=== PATIENT | female | born 1970 | race Caucasian/White ===

== ENCOUNTER 2018-07-07 02:25 | Inpatient (IN) | payer OTHER ==
[2018-07-06 15:26] LABS: INR 0.99
[2018-07-07] VITALS (14 sets, daily range): BP systolic 87–151; BP diastolic 74–102
[~2018-07-07] VITALS: Ht 157.5 cm; Wt 90.7 kg
[~2018-07-07 02:25] MED LIST: CELE50CA2 PO; CLON-388 PO; DUL20 PO; ESOM40CA42 PO; FEXO-72 PO; LOSA25TA52 PO; MULT1CAP59 PO; SUMA50TA34 PO
[2018-07-07] MEDS ORDERED: LIDOCAINE/SOD BICARB 8.4% SYR ID ONE (07:45)
[2018-07-07] MEDS ORDERED: BACITRACIN 50000 UNIT/VIAL 100,000 UNIT in NS 0.9% 3000 ML IRRIGATION BAG 3,000 ML IR ONE (07:45)
[2018-07-07] MEDS ORDERED: ACETAMINOPHEN 500 MG TAB PO ONE (07:45)
[2018-07-07] MEDS ORDERED: CLINDAMYCIN 900 MG/D5W 50 ML 50 ML IVPB ONE (07:45)
[2018-07-07] MEDS ORDERED: MIDAZOLAM 2 MG/2 ML VIAL IVP PRN (07:45)
[2018-07-07] MEDS ORDERED: PREGABALIN 150 MG CAPSULE PO ONE (07:45)
[2018-07-07] MEDS ORDERED: TRANEXAMIC AC 1000 MG/10ML SDV 1,000 MG in DEXTROSE 5% 50 ML BAG 50 ML IV ONE (07:45)
[2018-07-07] MEDS ORDERED: cloNIDine EPIDUR INJ 100MCG/ML 40 MCG, ROPIVACAINE 0.5% 20 ML VIAL 25 ML, EPINEPHrine H... INJ ONE (07:45)
[2018-07-07] MEDS ORDERED: PROPOFOL EMUL(*) 10MG/ML 20 ML 20 ML ONE (09:56)
[2018-07-07] MEDS ORDERED: PHENYLEPHRINE/NS/PF 0.4MG/10ML ONE (09:56)
[2018-07-07] MEDS ORDERED: fentaNYL CITR 100 MCG/2 ML AMP ONE ×4 (09:56→15:55)
[2018-07-07] MEDS ORDERED: LIDOCAINE MPF 1% 5 ML VIAL ONE (09:56)
[2018-07-07] MEDS ORDERED: ONDANSETRON 4 MG/2 ML VIAL ONE (09:56)
[2018-07-07] MEDS ORDERED: KETAMINE HCL-NS 50 MG/5 ML SYR ONE (10:01)
[2018-07-07] MEDS: CELECOXIB 200 MG CAP PO ONE ×2 (10:24→10:25)
[2018-07-07] MEDS: NORMOSOL R SOLN(*) 1000 ML BAG 1,000 ML IV PRN ×2 (10:25→15:48)
[2018-07-07] MEDS ORDERED: ROPIVACAINE 0.2% 20 ML VIAL ONE (12:00)
[2018-07-07] MEDS ORDERED: GENTAMICIN 80 MG/2 ML VIAL ONE (12:01)
[2018-07-07] MEDS ORDERED: EPINEPHrine HCL 1 MG/ML AMP ONE (12:01)
[2018-07-07] MEDS ORDERED: MIDAZOLAM 2 MG/2 ML VIAL ONE (13:00)
[2018-07-07] MEDS ORDERED: HYDROmorphone HCL 2 MG/ML SDV ONE (14:02)
[2018-07-07] MEDS ORDERED: ROCURONIUM BROM 10 MG/ML 10 ML ONE (14:35)
--- NOTE | 2018-07-07 15:12 | RADIOLOGY IMAGING REPORT ---
FACILITY: [facility] - [place] PATIENT NAME: Lisa Haro : 1970 MR: [id number] V: [id number] EXAM DATE: ORDERING PHYSICIAN: NEFTALI MICHELLE TECHNOLOGIST: [place] [facility] [place] Patient: Lisa Haro : 1970 Visit/Account:[id number] Date of Sevice: 07/07/2018 Exam type: 2 views right hip in OR History: Right hip arthroplasty Comparison: 04/09/2018. Findings: 2 images of the right hip are provided and demonstrate a right hip arthroplasty without hardware comp lication. Surgical tubes overlie the pelvis and a needle hook overlies the left pelvis. IMPRESSION: 1. Postoperative changes are noted from right hip arthroplasty without hardware complication. Pleas e note a needle hook overlies the left pelvis presumably outside the patient. Please correlate cli nically. Report Dictated By: Davi Azevedo MD at 07/07/2018 3:04 PM Report E-Signed By: Davi Azevedo MD at 07/07/2018 3:07 PM ANGEN:KEVAN
[2018-07-07] MEDS ORDERED: SUGAMMADEX SOD 500 MG/5 ML SDV ONE (15:25)
[2018-07-07] MEDS ORDERED: BISACODYL 10 MG SUPP PR PRN (16:20)
[2018-07-07] MEDS ORDERED: FLUSH 10 ML SYR IVP PRN (16:20)
[2018-07-07] MEDS ORDERED: LR 1000 ML BAG 1000 ML IV PRN (16:20)
[2018-07-07] MEDS ORDERED: diphenhydrAMINE 25 MG CAP PO PRN (16:20)
[2018-07-07] MEDS ORDERED: diphenhydrAMINE 50 MG/ML VIAL IVP PRN (16:20)
[2018-07-07] MEDS ORDERED: ONDANSETRON 4 MG/2 ML VIAL IVP PRN (16:20)
[2018-07-07] MEDS ORDERED: PROMETHAZINE 25 MG/ML 1 ML AMP IVP PRN (16:20)
[2018-07-07] MEDS ORDERED: MAGNESIUM CITRATE 300 ML BTL PO PRN (16:20)
[2018-07-07] MEDS ORDERED: MAGNESIUM HYDROXIDE* 30ML UDCP PO PRN (16:20)
[2018-07-07] MEDS ORDERED: ZOLPIDEM TARTRATE 5 MG TAB PO PRN (16:20)
--- NOTE | 2018-07-07 16:43 | RADIOLOGY IMAGING REPORT ---
FACILITY: [facility] - [place] PATIENT NAME: Lisa Haro : 1970 MR: [id number] V: [id number] EXAM DATE: ORDERING PHYSICIAN: NEFTALI MICHELLE TECHNOLOGIST: Location: [facility] - [place] Patient: Lisa Haro : 1970 Visit/Account:[id number] Date of Sevice: 07/07/2018 Exam: PELVIS Indication: POST RIGHT TOTAL HIP ARTHROPLASTY, RAD Comparison: None available Findings: Limited view of the pelvis shows a two part right OBI. Components appear in good alignment . The pelvis is intact. IMPRESSION: 1. Unremarkable postoperative right OBI Report Dictated By: Bereket Thomas at 07/07/2018 4:37 PM Report E-Signed By: Bereket Thomas at 07/07/2018 4:38 PM WSN:[id number]
[2018-07-07] MEDS: HYDROmorphone HCL 2 MG/ML SDV IVP PRN (17:22)
[2018-07-07] MEDS ORDERED: CELE200C7 PO (17:42)
[2018-07-07] MEDS ORDERED: LOSA100T69 PO (17:42)
[2018-07-07] MEDS ORDERED: ESCI20TA8 PO (17:42)
[2018-07-07] MEDS ORDERED: clonazePAM 0.5 MG TAB PO PRN (18:55)
[2018-07-07] MEDS ORDERED: SUMAtriptan SUCC 25MG TAB PO PRN (18:55)
--- NOTE | 2018-07-07 19:04 | Hospitalist Progress Note ---
Subjective Progress Notes Subjective No cp/sob. EBL 200cc. 2000cc of crystalloid, dexamethasone and TXA given intra-op. Physical Exam Vital Signs Date Time Temp Pulse Resp B/P (MAP) Pulse Ox O2 Delivery O2 Flow Rate FiO2 07/07/18 18:30 95 150/101 (117) 96 Nasal Cannula 2.0 07/07/18 17:10 97.6 14 General Appearance: Alert, Awake, No Acute Distress Cardiovascular: Regular Rate and Rhythm Respiratory: Clear to Auscultation Extremities: No Edema Assessment and Plan Problems: (1) Status post hip replacement Status: Acute Assessment & Plan: No CV/pulmonary issues. No h/o DVT/PE. The patient will be on ASA 325mg a day for 30 days for blood clot prevention. (2) HTN (hypertension) Status: Chronic Assessment & Plan: Continue chronic Losartan with parameters. (3) GERD (gastroesophageal reflux disease) Status: Chronic Assessment & Plan: The patient chronically takes Nexium. Protonix will be used in the hospital. (4) Anxiety Status: Chronic Assessment & Plan: Continue chronic Lexapro and will use clonazepam prn. (5) History of migraine Status: Chronic Assessment & Plan: Continue Imitrex prn. Problem Qualifiers (1) Status post hip replacement: Laterality: right Qualified Codes: Z96.641 - Presence of right artificial hip joint KAYLEE FRANKLIN MD Jul 07, 2018 19:04
[2018-07-07] MEDS: CLINDAMYCIN 150 MG CAP PO SCH (19:36)
--- NOTE | 2018-07-07 19:48 | OPERATIVE REPORT 1 ---
EVENT DATE: July 07, 2018 SURGEON: Elton Barrientos MD ANESTHESIOLOGIST: Neri Salazar MD ANESTHESIA: General LMA anesthesia, also with a block. NETWORK SYSTEMS ANALYST: Juan Antonio Hardin PA-C PREOPERATIVE DIAGNOSIS Right hip osteoarthritis. POSTOPERATIVE DIAGNOSIS Right hip osteoarthritis. PROCEDURE PERFORMED Right total hip arthroplasty. FINDINGS The patient had a significant amount of arthritic changes associated with the hip. It was amenable for a total hip replacement. ESTIMATED BLOOD LOSS About 300 mL. DRAINS None. COMPLICATIONS None. TOURNIQUET TIME Not applicable. IMPLANTS USED Sky 52 mm trabecular metal cup with a neutral liner, a 9 standard stem, a 36, +3.5 ceramic head, a 6.5 x 35 mm bone screw into the cup, then two screw hole plugs, and one dome hole plug. SPECIMENS None. INDICATIONS AND HISTORY This patient is a 47-year-old female who presented to my clinic for evaluation of right hip pain and irritation associated with arthritic changes. She tried all conservative management including injections, therapy, and living with it, and unfortunately, it continued to give her significant pain associated with this, and so she wanted to go ahead with the total hip replacement today, 07/07/18. We went over the risks and benefits associated with this, and the risks and benefits were discussed with her. She also understood that she is very young to have a total hip replacement, and this will likely mean she will need a revision or two before the end of her lifetime. She understood that with each revision comes more complications and problems associated with it, but she wanted to go ahead with that today. We went over the risks and benefits, and informed consent was obtained at the last clinic visit. DESCRIPTION OF PROCEDURE As the patient was brought into the operating room, and she and the procedure were both verified. She was placed supine on the operating table and given a block by Anesthesia, and then she was induced and intubated by Anesthesia. She was turned into the lateral decubitus position with the right hip towards the ceiling. The right hip was then prepped and draped in the usual fashion. A timeout was observed verifying the correct patient and procedure. The standard incision was made over the posterolateral aspect of the hip and was taken through the skin and subcutaneous tissue until I got down to the IT band and to the gluteal musculature. Once I was able to get to this area, I then made an incision through this area in order to get to the back of the greater trochanter in this area. Once I was able to do this, I was able to identify the piriformis and able to cut this and tag this for later repair. I was able to go through the rest of the short external rotators and cauterize all bleeders through this area. Once I had good exposure of this, I was then able to visualize the capsule. I made a T-shape incision within the capsule trying to keep an eye in order to make it amenable for further repair. I then dislocated the hip without any major difficulty, cleaned off the neck, and then cut the head in the standard fashion in accordance with the Sky system. I then was able to gain access to the acetabulum where we put a retractor superiorly, anteriorly, and inferiorly. I was able to then tag the capsule for later repair. This was then followed by irrigation with copious amounts of saline and then cleaning out the undersurface of the acetabulum. I then removed the labrum with sharp dissection and then commenced reaming. Once I commenced reaming, I started with a 41 mm reamer and reamed all the way up to a 51 mm reamer. It did make the posterior wall just a touch thin, but she did not have much of a posterior wall and also had a retroverted acetabulum, and so therefore, we put the cup in with a little bit more of an anteversion to try to prevent her dislocation given her body habitus and her hip replacement early in life. We then irrigated with copious amounts of saline. I put in a 52 cup without any major difficulty. I had good fixation associated with it. I put a screw in just in case since we had changed the version of our cup just slightly, and so therefore, we then were able to put in the liner without any difficulty after putting one screw, which is a 6.5 x 35 mm screw, a dome hole plug, and two screw hole plugs in the area. This then secured fixation of the cup. I then turned attention back to the femur where I was able to put it in a flexed and internally rotated position. I then able to get at the femur and then use a box cutting osteotome, followed by lateralizing reamer and a canal finder, and then commenced broaching up from a [address] up to a 9 mm broach. The 9 mm fit in well, and we calcar reamed this down just a little bit. The standard head felt to be a little bit loose when we reduced it into the socket, and so therefore, I put in a +3.5, and this felt a lot better and had a little bit more stability associated with it. We then took an intraoperative x-ray, verified that we were just a little bit long on that side, maybe a millimeter or two, and so therefore, we then removed all instrumentation. I took the 9 broach and put it in just about another millimeter or two further and then put the final stem in to that level in order to even out the leg lengths. We then put in a +3.5 ceramic head which was a 36, +3.5 ceramic head, and relocated it. It had good length associated with it and good stability, and so therefore, these were the final components chosen. We then irrigated with copious amounts of saline again, closed the capsule using a heavy Ethibond stitch, put the piriformis back through drill holes in the posterior aspect of the femur, and then closed the IT band and the gluteal musculature with a #2 Stratafix suture. This was then followed by irrigation again with copious amounts of saline using the pulsatile lavage with Bacitracin- soaked irrigation. We then closed the deep fat layer with a 2-0 Vicryl in a running stitch, then closed the subcutaneous skin with a 2-0 Stratafix, and then followed by a 4-0 Monocryl in a running subcuticular stitch. We did add the pain cocktail throughout the case, and then we dressed with Steri-Strips, gauze 4 x 4's, and a soft dressing. The patient was then awakened, extubated, and transferred to PACU in stable condition where she will be admitted overnight. MANOHAR
[2018-07-07] MEDS: ASPIRIN 325 MG TAB PO SCH (21:16)
[2018-07-08] VITALS (8 sets, daily range): BP systolic 88–122; BP diastolic 68–84; Ht 157.5 cm; Wt 90.7 kg
[2018-07-08] MEDS: CLINDAMYCIN 150 MG CAP PO SCH ×2 (01:38→07:32)
[2018-07-08] MEDS ORDERED: LOSARTAN POTASSIUM 50 MG TAB PO SCH (09:00)
--- NOTE | 2018-07-08 09:20 | Hospitalist Progress Note ---
Subjective Progress Notes Subjective She has no complaints this morning. She had no acute events overnight. Patient Complains of: Cardiovascular: No: Chest Pain Respiratory: No: Shortness of Breath Physical Exam Vital Signs Date Time Temp Pulse Resp B/P (MAP) Pulse Ox O2 Delivery O2 Flow Rate FiO2 07/08/18 07:33 97.9 76 18 110/76 (87) 95 Nasal Cannula 1.0 Intake and Output 07/08/18 07:00 Intake Total 2150 ml Balance 2150 ml Intake IV Total 2150 ml # Voids 1 General Appearance: Alert, Awake, No Acute Distress, Afebrile Neuro: No Gross deficits Cardiovascular: Regular Rate and Rhythm Respiratory: No Respiratory Distress, Clear to Auscultation GI: Soft and Non-Tender Psych: Alert & Oriented X3, Appropriate Mood & Affect Result Diagram: 07/08/18 0547 Assessment and Plan Problems: (1) Status post hip replacement Status: Acute Assessment & Plan: No CV/pulmonary issues. No h/o DVT/PE. The patient will be on ASA 325mg a day for 30 days for blood clot prevention. (2) HTN (hypertension) Status: Chronic Assessment & Plan: Continue chronic Losartan with parameters. (3) GERD (gastroesophageal reflux disease) Status: Chronic Assessment & Plan: The patient chronically takes Nexium. Protonix will be used in the hospital. (4) Anxiety Status: Chronic Assessment & Plan: Continue chronic Lexapro and will use clonazepam prn. (5) History of migraine Status: Chronic Assessment & Plan: Continue Imitrex prn. Exam Sepsis Risk: No Definite Risk Problem Qualifiers (1) Status post hip replacement: Laterality: right Qualified Codes: Z96.641 - Presence of right artificial hip joint HIRAM BERNARD [facility] Jul 08, 2018 09:20
[2018-07-08] MEDS: PANTOPRAZOLE SOD 40 MG TABEC PO SCH (09:31)
[2018-07-08] MEDS: ESCITALOPRAM OXALATE 10 MG TAB PO SCH (09:31)
[2018-07-08] MEDS: HYDROmorphone HCL 2 MG/ML SDV IVP PRN ×2 (16:02→21:23)
[2018-07-08] MEDS: ASPIRIN 325 MG TAB PO SCH (21:23)
[2018-07-09 03:34] VITALS: BP 120/84
[2018-07-09] MEDS: HYDROmorphone HCL 2 MG/ML SDV IVP PRN (05:46)
[2018-07-09] MEDS ORDERED: PER PO (07:17)
[2018-07-09 08:01] VITALS: BP 118/80
[2018-07-09] MEDS: ESCITALOPRAM OXALATE 10 MG TAB PO SCH (08:05)
[2018-07-09] MEDS: PANTOPRAZOLE SOD 40 MG TABEC PO SCH (08:05)
[2018-07-09] MEDS ORDERED: ASPI-757 PO (09:06)
--- NOTE | 2018-07-09 09:55 | Hospitalist Progress Note ---
Subjective Progress Notes Subjective She has no complaints this morning. She had no acute events overnight. Patient Complains of: Cardiovascular: No: Chest Pain Respiratory: No: Shortness of Breath Physical Exam Vital Signs Date Time Temp Pulse Resp B/P (MAP) Pulse Ox O2 Delivery O2 Flow Rate FiO2 07/09/18 08:50 93 Room Air 07/09/18 08:01 98.6 83 16 118/80 (93) 07/08/18 07:40 1.0 Intake and Output 07/09/18 07:00 Intake Total 600 ml Balance 600 ml Intake Oral 600 ml # Voids 3 General Appearance: Alert, Awake, No Acute Distress, Afebrile Neuro: No Gross deficits Cardiovascular: Regular Rate and Rhythm Respiratory: No Respiratory Distress, Clear to Auscultation GI: Soft and Non-Tender Psych: Alert & Oriented X3, Appropriate Mood & Affect Result Diagram: 07/09/18 0525 Assessment and Plan Problems: (1) Status post hip replacement Status: Acute Assessment & Plan: No CV/pulmonary issues. No h/o DVT/PE. The patient will be on ASA 325mg a day for 30 days for blood clot prevention. (2) HTN (hypertension) Status: Chronic Assessment & Plan: Continue chronic Losartan with parameters. (3) GERD (gastroesophageal reflux disease) Status: Chronic Assessment & Plan: The patient chronically takes Nexium. Protonix will be used in the hospital. (4) Anxiety Status: Chronic Assessment & Plan: Continue chronic Lexapro and will use clonazepam prn. (5) History of migraine Status: Chronic Assessment & Plan: Continue Imitrex prn. Exam Sepsis Risk: No Definite Risk Problem Qualifiers (1) Status post hip replacement: Laterality: right Qualified Codes: Z96.641 - Presence of right artificial hip joint HIRAM BERNARD [employer] Jul 09, 2018 09:55
== END 2018-07-09 11:20 | disposition home or self-care (01) | DRG 470 ==
LOC: OR 02:25 → MED 17:15
PROVIDERS: ADMIT Orthopaedic Surgery; ATTEND Orthopaedic Surgery
PROC: 0SR904A Replacement of Right Hip Joint with Ceramic on Polyethylene Synthetic Substitute, Uncemented, Open Approach (ICD-10-PCS; principal; 2018-07-07 12:30)
DX: M16.11 Unilateral primary osteoarthritis, right hip (principal); I10 Essential (primary) hypertension; F32.9 Major depressive disorder, single episode, unspecified; K21.9 Gastro-esophageal reflux disease without esophagitis; F41.9 Anxiety disorder, unspecified; G43.909 Migraine, unspecified, not intractable, without status migrainosus
CPT/HCPCS: 36415; 72170; 85014; 85018; 85610; 86850; 86900; 86901; 97161; 97165; C1713; C1776; J0171; J0735; J1170; J1580; J1885; J2001; J2250; J2370; J2405; J2704; J2795; J3010; J3490; J7050; J7060